=== PATIENT | male | born 1995 | race Caucasian/White ===

== ENCOUNTER 2022-07-17 04:52 | Emergency (ER) | payer SELFPAY ==
[2022-07-17 05:36] VITALS: BP 140/74; PULSE 92; RESP 22; TEMP 36.7; O2SAT 100; BMI 20.3
--- NOTE | 2022-07-17 05:56 | ED.DENTAL ---
HPI - Dental/Oral General Chief complaint: Dental/Oral Stated complaint: lt. molar pain Time Seen by Provider: 07/17/22 05:44 Source: patient Mode of arrival: Family Vehicle Limitations: no limitations History of Present Illness HPI Narrative: This is a 26-year-old male who comes with complaint of left molar pain. Patient states he has been on about 7 days amoxicillin/clavulanic 875 mg twice daily. Patient has not had any improvement. He states the tooth is cracked, he is had issues with in the past. He has had a dental block in the past. Patient denies fevers or chills. No nausea or vomiting. No chest pain shortness of breath. He has not appreciated significant swelling but states sometimes seems a little swollen at that area. Patient denies any other medical issues denies daily medications. He does smoke daily. Occasional alcohol, uses THC but no illicit. Patient has a dental appointment this TuesdayJuly 19. Related Data Previous Rx's Medication Instructions Recorded oxycodone 5 mg tablet 5 mg PO Q6H PRN pain #10 tabs 07/17/22 Review of Systems Review of Systems ROS Unobtainable: All systems reviewed & are unremarkable except as noted in HPI and below Patient History Social History Smoking Status: Current some day smoker Smoking Status: Current some day smoker tobacco type: cigarettes alcohol intake frequency: holidays/special occasions only Alcohol type: beer Substance Use Type: marijuana Exam Narrative Exam Narrative: GEN: well nourished, well appearing male, alert and oriented x 3, patient appears to be in moderate distress. HEENT: Atraumatic, pupils are equal round reactive to light, extraocular movements are intact, nares are clear, TMs are clear with no fluid, there is no conjunctival pallor. Throat is clear without any exudates, erythema, tonsillar enlargement or uvular deviation, patient has poor dentition. Patient HEART: Regular rate and rhythm without murmur, clicks, rubs. LUNGS:Lungs clear to auscultation, no wheezes, rales, crackles, chest moves symmetrically ABD:bowel sounds normal, soft, non-tender, no guarding, rebound, rigidity, no masses noted, no hepatosplenomegaly :No CVA tenderness MSCL: Non-tender, no muscle atrophy, muscles strength 5/5 upper and lower extremities, full range of motion, normal gait NEURO:CN 2-12 intact, sensation normal SKIN: No rash, erythema or other skin changes Initial Vital Signs Initial Vital Signs: Vital Signs Temperature 98.1 F 07/17/22 05:36 Pulse Rate 92 H 07/17/22 05:36 Respiratory Rate 22 07/17/22 05:36 Blood Pressure 140/74 07/17/22 05:36 Pulse Oximetry 100 07/17/22 05:36 Oxygen Delivery Method 07/17/22 05:36 Procedures [facility] [place] Procedure Name of Procedure: Landmarks for localized were identified. A 27 gauge needle was inserted while aspirating without any blood back. A mixture of bupivacaine with epinephrine was injected, adequate anesthesia was obtained. Patient recheck states minimal improvement. Course Orders Ordered: Discontinued Medications Bupivacaine HCl (Bupivacaine 0.25% Mdv) 50 ml INJ INTRA-OP ONE Stop: 07/17/22 06:17 Ketorolac Tromethamine (Ketorolac 30 Mg/Ml Vial) 30 mg IM NOW ONE Stop: 07/17/22 07:02 Last Admin: 07/17/22 07:34 Dose: 30 mg Documented By: ANN Oxycodone/Acetaminophen (Oxycodone/Apap 5/325 Prepack) 1 bottle [facility] ONE Stop: 07/17/22 07:02 Last Admin: 07/17/22 07:34 Dose: 1 bottle Documented By: NR Vital Signs Vital signs: Vital Signs - 8 hr 07/17/22 05:36 Temperature 98.1 F Pulse Rate 92 H Respiratory Rate 22 Blood Pressure 140/74 Pulse Oximetry 100 Oxygen Delivery Method Room Air Discharge Plan Departure Patient Disposition: Home Clinical Impression: Dental caries, Fracture of tooth Activity Restrictions/Additional Instructions: Follow-up at your appointment on Tuesday with a dentist. I think this will be the most helpful for you. You may continue your antibiotics until completed. You can take Tylenol 1000 mg every 6 hours as needed and/or ibuprofen up to 800 mg every 8 hours as needed. You may take 1-2 tablets of narcotic pain medication every 6 hours. This medication can make you sleepy do not drive, perform hazardous activities or make any major decisions while taking it. This medication will make you constipated please take a stool softener once to twice daily until stools are soft and regular. Please return for fevers, rapidly worsening symptoms, swelling of the face, lips, airway, persistent vomiting, new redness or other new or concerning changes Prescriptions: New oxycodone 5 mg tablet 5 mg PO Q6H PRN (Reason: pain) Qty: 10 0RF Stand Alone Forms: Patient Portal/API
[2022-07-17] MEDS: OXYCODONE/APAP 5/325 PREPACK 1 BOTTLE MISC (07:34)
[2022-07-17] MEDS: KETOROLAC 30 MG/ML VIAL IM (07:34)
[2022-07-17 07:42] VITALS: BP 122/56; PULSE 87; RESP 16; O2SAT 98
== END 2022-07-17 07:43 | disposition home or self-care (01) ==
PROVIDERS: Emergency Provider Emergency Medicine
DX: K02.9 Dental caries, unspecified (principal); S02.5XXA Fracture of tooth (traumatic), initial encounter for closed fracture; X58.XXXA Exposure to other specified factors, initial encounter
CPT/HCPCS: 96372; 99283; J1885